=== PATIENT | male | born 1940 | race Caucasian/White ===

== ENCOUNTER 2021-05-17 09:38 | Emergency (ER) | payer MEDICARE, SELFPAY ==
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
[2021-05-17 10:13] VITALS: BP 124/75; PULSE 87; RESP 16; TEMP 36.6; O2SAT 95
--- NOTE | 2021-05-17 10:31 | PC.NURSE ---
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 Original Note: Spoke with Cindy from [facility] Dept. She is recommending that pt receive the rabies vaccination since the bite was caused by a racoon. Pt aware and is agreeable to receiving first dose of the series in ER at this time.
--- NOTE | 2021-05-17 10:51 | PC.NURSE ---
Spoke with Cindy from [facility] Dept to confirm rabies series schedule. Doses are given on days 0, 3, 7, and 14. Pt will recieve first dose in ER today and will schedule the following doses outpatient.
--- NOTE | 2021-05-17 11:19 | PC.NURSE ---
Pt facesheet and rabies immunization schedule faxed to [facility] at [phone].
--- NOTE | 2021-05-17 12:05 | PC.NURSE ---
Waiting for senior technical editor to return from [facility] with medication for pt. Pt updated.
[2021-05-17] MEDS: RABIES IMMUNE GLOBULIN/PF 1,500 UNITS/5 ML VIAL 2000 UNITS IM (12:36)
[2021-05-17] MEDS: RABIES VACCINE (RABAVERT) 2.5 UNITS VIAL IM (12:37)
[2021-05-17 13:41] VITALS: BP 144/83; PULSE 91; RESP 16; O2SAT 93
== END 2021-05-17 13:30 | disposition home or self-care (01) ==
PROVIDERS: Emergency Provider Internal Medicine Critical Care Medicine; PCP Family Medicine
DX: S61.314A Laceration without foreign body of right ring finger with damage to nail, initial encounter (principal); W55.51XA Bitten by raccoon, initial encounter
CPT/HCPCS: 90471; 90675; 96372; 99284; 90375

== ENCOUNTER 2021-05-20 13:50 | Outpatient (CLI) | payer MEDICARE, SELFPAY ==
[2021-05-20 13:58] VITALS: BMI 33.9
[2021-05-20 13:59] VITALS: BP 130/74; PULSE 72; RESP 14; TEMP 35.9; O2SAT 97
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
[2021-05-20] MEDS: RABIES VACCINE (RABAVERT) 2.5 UNITS VIAL IM (14:12)
== END 2021-05-20 13:51 | disposition home or self-care (01) ==
PROVIDERS: PCP Family Medicine; Visit Provider Internal Medicine Critical Care Medicine
DX: S61.314A Laceration without foreign body of right ring finger with damage to nail, initial encounter (principal); W55.51XA Bitten by raccoon, initial encounter
CPT/HCPCS: 90471; 90675

== ENCOUNTER 2021-05-24 13:56 | Outpatient (CLI) | payer MEDICARE, SELFPAY ==
[2021-05-24 14:26] VITALS: BMI 36.6
[2021-05-24 14:27] VITALS: BP 121/73; PULSE 72; RESP 16; TEMP 36.3; O2SAT 97
[2021-05-24] MEDS: RABIES VACCINE (RABAVERT) 2.5 UNITS VIAL IM (14:32)
--- NOTE | 2021-05-24 14:38 | PC.NURSE ---
Patient here for #3 of 4 Rabies injections. Education on medication given. No concerns voiced. Injection given. SEE MAR. Tolerated well. Safe exit of hospital. Will return next Monday05/31/21.NELLA
== END 2021-05-24 13:57 | disposition home or self-care (01) ==
PROVIDERS: PCP Family Medicine; Visit Provider Internal Medicine Critical Care Medicine
DX: S61.314A Laceration without foreign body of right ring finger with damage to nail, initial encounter (principal); W55.51XA Bitten by raccoon, initial encounter
CPT/HCPCS: 90471; 90675

== ENCOUNTER 2021-05-31 14:00 | Outpatient (CLI) | payer MEDICARE, SELFPAY ==
[2021-05-31 14:07] VITALS: BP 132/70; PULSE 72; RESP 16; TEMP 36.3; O2SAT 97; BMI 36.6
[2021-05-31] MEDS: RABIES VACCINE (RABAVERT) 2.5 UNITS VIAL IM (14:14)
--- NOTE | 2021-05-31 14:16 | PC.NURSE ---
Patient here for last Rabies injection of series of 4. Education given. No concerns. Reports, Done well on last 3 shots. Injection administered SEE APR. Tolerated well. Safe exit of hospital.
== END 2021-05-31 14:01 | disposition home or self-care (01) ==
LOC: CHSTREATRM 14:05
PROVIDERS: PCP Internal Medicine Critical Care Medicine; Visit Provider Internal Medicine Critical Care Medicine
DX: S61.314A Laceration without foreign body of right ring finger with damage to nail, initial encounter (principal); W55.51XA Bitten by raccoon, initial encounter
CPT/HCPCS: 90471; 90675